=== PATIENT | male | born 1970 | race Caucasian/White ===

== ENCOUNTER 2023-04-28 15:43 | Outpatient (CLI) | payer BC | END 2023-04-28 15:44 | disposition home or self-care (01) | LOC: CSHMRI 15:43 | PROVIDERS: ATTEND Orthopaedic Surgery | DX: M50.123 Cervical disc disorder at C6-C7 level with radiculopathy (principal); M50.122 Cervical disc disorder at C5-C6 level with radiculopathy; G95.89 Other specified diseases of spinal cord | CPT/HCPCS: 72141 ==